=== PATIENT | male | born 1965 | race Caucasian/White ===

== ENCOUNTER 2019-07-20 09:55 | Inpatient (IN) | payer OTHER ==
--- NOTE | 2019-07-20 10:07 | EDPHYS ---
Physician Documentation [facility] Name: Doyle Jara Age: 54 yrs Sex: Male : 1965 Arrival Date: 07/20/2019 Time: 09:59 Bed 8 Private MD: ED Physician Agustín Arreola HPI: 07/20 10:02 This 54 yrs old Male presents to ER via Unassigned with complaints of satish Abdominal Pain. 10:02 The patient presents with abdominal pain. Onset: The symptoms/episode began/occurred 3 satish day(s) ago. The symptoms do not radiate. Associated signs and symptoms: none. Modifying factors: The symptoms are alleviated by remaining still, the symptoms are aggravated by movement, pressure. Severity of pain: At its worst the pain was moderate in the emergency department the pain is unchanged. The patient has not experienced similar symptoms in the past. Historical: - Allergies: 10:10 No Known Allergies; jl7 - Home Meds: 10:10 metformin 1,000 mg oral TG24 1 tab 2 times per day [Active]; fenofibrate oral oral jl7 [Active]; Glimepiride Oral [Active]; lisinopril 20 mg Oral tab [Active]; Invokana oral oral [Active]; - PMHx: 10:10 Diabetes - NIDDM; Does not have HTN; jl7 - PSHx: 10:10 None; jl7 - Immunization history:: Adult Immunizations unknown. - Social history:: Smoking status: Patient/guardian denies using tobacco. - Family history:: not pertinent. - Ebola Screening: : No symptoms or risks identified at this time. ROS: 10:02 Constitutional: Negative for fever, chills, and weight loss, Eyes: Negative for injury, satish pain, redness, and discharge, ENT: Negative for injury, pain, and discharge, Neck: Negative for injury, pain, and swelling, Cardiovascular: Negative for chest pain, palpitations, and edema, Respiratory: Negative for shortness of breath, cough, wheezing, and pleuritic chest pain, Back: Negative for injury and pain, : Negative for injury, bleeding, discharge, and swelling, MS/Extremity: Negative for injury and deformity, Skin: Negative for injury, rash, and discoloration, Neuro: Negative for headache, weakness, numbness, tingling, and seizure, Psych: Negative for depression, anxiety, suicide ideation, homicidal ideation, and hallucinations, Allergy/Immunology: Negative for hives, rash, and allergies, Endocrine: Negative for neck swelling, polydipsia, polyuria, polyphagia, and marked weight changes. 10:02 Abdomen/GI: Positive for abdominal pain, nausea and vomiting, abdominal cramps, abdominal distension, of the right lower quadrant. Exam: 10:02 Constitutional: This is a well developed, well nourished patient who is awake, alert, satish and in no acute distress. Head/Face: Normocephalic, atraumatic. Eyes: Pupils equal round and reactive to light, extra-ocular motions intact. Lids and lashes normal. Conjunctiva and sclera are non-icteric and not injected. Cornea within normal limits. Periorbital areas with no swelling, redness, or edema. ENT: Nares patent. No nasal discharge, no septal abnormalities noted. Tympanic membranes are normal and external auditory canals are clear. Oropharynx with no redness, swelling, or masses, exudates, or evidence of obstruction, uvula midline. Mucous membranes moist. Neck: Trachea midline, no thyromegaly or masses palpated, and no cervical lymphadenopathy. Supple, full range of motion without nuchal rigidity, or vertebral point tenderness. No Meningismus. Chest/axilla: Normal chest wall appearance and motion. Nontender with no deformity. No lesions are appreciated. Cardiovascular: Regular rate and rhythm with a normal S1 and S2. No gallops, murmurs, or rubs. Normal PMI, no JVD. No pulse deficits. Respiratory: Lungs have equal breath sounds bilaterally, clear to auscultation and percussion. No rales, rhonchi or wheezes noted. No increased work of breathing, no retractions or nasal flaring. Back: No spinal tenderness. No costovertebral tenderness. Full range of motion. Male : Normal genitalia with no discharge or lesions. Skin: Warm, dry with normal turgor. Normal color with no rashes, no lesions, and no evidence of cellulitis. MS/ Extremity: Pulses equal, no cyanosis. Neurovascular intact. Full, normal range of motion. Neuro: Awake and alert, GCS 15, oriented to person, place, time, and situation. Cranial nerves II-XII grossly intact. Motor strength 5/5 in all extremities. Sensory grossly intact. Cerebellar exam normal. Normal gait. Psych: Awake, alert, with orientation to person, place and time. Behavior, mood, and affect are within normal limits. 10:02 Abdomen/GI: Inspection: abdomen appears normal, Bowel sounds: hyperactive, Palpation: moderate abdominal tenderness, in the right lower quadrant, Liver: no appreciated palpable abnormalities, Hernia: not appreciated. Vital Signs: 10:10 BP 110 / 67; Pulse 99; Resp 17 S; Temp 98.2(O); Pulse Ox 95% on R/A; Weight 112.49 kg jl7 (R); Height 5 ft. 9 in. (175.26 cm) (R); Pain 2/10; 11:00 BP 105 / 63; Pulse 90; Resp 16 S; Pulse Ox 97% on R/A; Pain 4/10; jl7 10:10 Body Mass Index 36.62 (112.49 kg, 175.26 cm) 7 MDM: 10:00 Patient medically screened. [facility] 10:04 Data reviewed: vital signs, nurses notes, lab test result(s), EKG, radiologic studies, [facility] CT scan, plain films. 07/20 10:01 Order name: Basic Metabolic Panel; Complete Time: 10:58 [facility] 07/20 10:01 Order name: CBC with Diff [facility] 07/20 10:01 Order name: LFT's; Complete Time: 10:58 [facility] 07/20 10:01 Order name: Magnesium; Complete Time: 10:58 [facility] 07/20 10:01 Order name: NT PRO-BNP; Complete Time: 10:58 [facility] 07/20 10:01 Order name: PT-INR; Complete Time: 10:58 [facility] 07/20 10:01 Order name: Troponin (emerg Dept Use Only); Complete Time: 10:58 [facility] 07/20 10:01 Order name: XRAY Chest (1 view) [facility] 07/20 11:27 Order name: Urine Dipstick--Ancillary (enter results) 07/20 10:01 Order name: EKG; Complete Time: 10:02 [facility] 07/20 10:01 Order name: Cardiac monitoring; Complete Time: 10:27 [facility] 07/20 10:01 Order name: EKG - Nurse/Tech; Complete Time: 10:27 [facility] 07/20 10:01 Order name: IV Saline Lock; Complete Time: 10: [facility] 07/20 10: Order name: Labs collected and sent; Complete Time: : [facility] 07/20 10: Order name: O2 Per Protocol; Complete Time: : [facility] 07/20 10: Order name: O2 Sat Monitoring; Complete Time: : [facility] Administered Medications: 10:55 Drug: NS 0.9% 1000 ml Route: IV; Rate: 1 bolus; Site: right forearm; jl7 12:03 Follow up: IV Status: Completed infusion; IV Intake: 1000ml jl7 11:00 Drug: Flagyl 500 mg Volume: 100 ml; Route: IVPB; Rate: 200 ml/hr; Infused Over: 30 jl7 mins; Site: right forearm; 11:30 Follow up: IV Status: Completed infusion jl7 11:03 Drug: Zofran 4 mg Route: IVP; Site: right forearm; jl7 11:56 Follow up: Response: No adverse reaction jl7 11:10 Drug: morphine 2 mg Route: IVP; Site: right forearm; jl7 11:30 Follow up: Response: No adverse reaction; Pain is decreased jl7 11:45 Drug: Zosyn 3.375 grams Route: IVPB; Infused Over: 60 mins; Site: right forearm; jl7 12:04 Follow up: IV Status: Infusion continued upon admission jl7 12:00 Drug: NS 0.9% 1000 ml Route: IV; Rate: 1 bolus; Site: right forearm; jl7 12:04 Follow up: IV Status: Infusion continued upon admission jl7 Disposition: 07/20/19 10:06 Hospitalization ordered by [facility] for Inpatient Admission. Preliminary diagnosis are Abdominal tenderness, Acute appendicitis with localized peritonitis - perforated, Elevated white blood cell count. - Bed requested for Telemetry/MedSurg (Inpatient). - Status is Inpatient Admission. jl7 - Condition is Fair. - Problem is new. - Symptoms have improved. UTI on Admission? No Signatures: Dispatcher [employer] EDAgustín Rashid MD MD cha Leal, Jahala, RN RN jl7 Teodora Yoo Corrections: (The following items were deleted from the chart) 10:47 10:06 Hospitalization Ordered by Choco Boogie MD for Inpatient Admission. Preliminary eb diagnosis is Abdominal tenderness; Acute appendicitis with localized peritonitis - perforated. Bed requested for Telemetry/MedSurg (Inpatient). Status is Inpatient Admission. Condition is Fair. Problem is new. Symptoms have improved. UTI on Admission? No. satish 10:58 10:47 07/20/2019 10:06 Hospitalization Ordered by Choco Boogie MD for Inpatient satish Admission. Preliminary diagnosis is Abdominal tenderness; Acute appendicitis with localized peritonitis - perforated. Bed requested for Telemetry/MedSurg (Inpatient). Status is Inpatient Admission. Condition is Fair. Problem is new. Symptoms have improved. UTI on Admission? No. eb 12:05 10:58 07/20/2019 10:06 Hospitalization Ordered by Choco Boogie MD for Inpatient jl7 Admission. Preliminary diagnosis is Abdominal tenderness; Acute appendicitis with localized peritonitis - perforated; Elevated white blood cell count. Bed requested for Telemetry/MedSurg (Inpatient). Status is Inpatient Admission. Condition is Fair. Problem is new. Symptoms have improved. UTI on Admission? No. satish
[2019-07-20] MEDS ORDERED: ONDANSETRON 4 MG/2 ML VIAL ONE (10:29)
[2019-07-20] MEDS ORDERED: NA CHLORIDE 0.9% 2,000 ML ONE (10:29)
[2019-07-20] MEDS ORDERED: MORPHINE 2 MG/ML SYR ONE (10:29)
[2019-07-20] MEDS ORDERED: PIPER/TAZO/NS 3.375gm 0 GM/0 ML BAG ONE (10:30)
[2019-07-20] MEDS ORDERED: METRONIDAZOLE 500mg IVPB 500 MG/100 ML BAG IV ONE (10:30)
[2019-07-20] MEDS ORDERED: PIPER/TAZO/NS 3.375gm 3.375 GM/100 ML BAG ONE (10:31)
[2019-07-20 10:36] LABS: Protime INR 1.02
[2019-07-20 10:44] LABS: Absolute Lymphocytes (CBC) 2.5 K/uL (0.7-4.9); Basophils % 0.2 % (0-1.3); Hematocrit 42.2 % (39.6-49.0); Lymphocytes % 10.8 % (15.3-44.8); MPV 7.3 fL (7.6-11.3); RBC Red Blood Cell Count 4.81 M/uL (4.33-5.43)
[2019-07-20 10:55] LABS: ALT/SGPT 44 U/L (12-78); AST/SGOT 10 U/L (15-37); Alkaline Phosphatase 93 U/L (45-117); BUN Blood Urea Nitrogen 27 mg/dL (7-18); Bicarbonate 22 mmol/L (21-32); Bilirubin Direct 0.1 mg/dL (0-0.2); Bilirubin Total 0.2 mg/dL (0.2-1.0); Glucose Level 170 mg/dL (74-106); Magnesium 2.2 mg/dL (1.8-2.4); NT PRO-BNP 47 pg/mL (<125); Potassium 4.5 mmol/L (3.5-5.1); Protein, Total 8.2 g/dL (6.4-8.2); Sodium Level 138 mmol/L (136-145); Troponin (Emerg Dept Use Only) < 0.02 ng/mL (0.0-0.045)
[2019-07-20] MEDS ORDERED: PROPOFOL 200 MG/20 ML VIAL IV ONE ×2 (12:01→13:34)
[2019-07-20] MEDS ORDERED: MIDAZOLAM HCL 2 MG/2 ML INJ ONE (12:01)
[2019-07-20] MEDS ORDERED: ROCURONIUM 50 MG/5 ML VIAL IV ONE (12:02)
[2019-07-20] MEDS ORDERED: FENTANYL CITR 100 MCG/2 ML ONE ×2 (12:02→12:41)
[2019-07-20] MEDS ORDERED: LIDOCAINE 2% MPF 5 ML VIAL ONE (12:02)
--- NOTE | 2019-07-20 12:06 | ER ---
Nurse's Notes [facility] Name: Doyle Jara Age: 54 yrs Sex: Male : 1965 Arrival Date: 07/20/2019 Time: 09:59 Bed 8 Private MD: Diagnosis: Abdominal tenderness;Acute appendicitis with localized peritonitis-perforated;Elevated white blood cell count Presentation: 07/20 10:10 Presenting complaint: Patient states: RLQ abd pain x 10 days. Transition of care: jl7 patient was received from another setting of care (hospital), Out-patient CT. Onset of symptoms was July 11, 2019. Risk Assessment: Do you want to hurt yourself or someone else? Patient reports no desire to harm self or others. Initial Sepsis Screen: Does the patient meet any 2 criteria? No. Patient's initial sepsis screen is negative. Does the patient have a suspected source of infection? Yes: Acute abdominal pain. Care prior to arrival: None. 10:10 Method Of Arrival: Wheelchair jl7 10:10 Acuity: RADU 2 jl7 Triage Assessment: 10:10 General: Appears in no apparent distress. uncomfortable, Behavior is calm, cooperative, jl7 appropriate for age. Pain: Complains of pain in right lower quadrant Pain does not radiate. Pain currently is 2 out of 10 on a pain scale. at worst was 10 out of 10 on a pain scale. Quality of pain is described as sharp, stabbing, Pain began 10 days ago Is intermittent. EENT: No signs and/or symptoms were reported regarding the EENT system. Neuro: Level of Consciousness is awake, alert, obeys commands, Oriented to person, place, time, situation. Cardiovascular: Patient's skin is warm and dry. Respiratory: Airway is patent Respiratory effort is even, unlabored, Respiratory pattern is regular, symmetrical. GI: Abdomen is round non-distended, Stools are reported to be normal. Bowel sounds present X 4 quads. Patient currently denies constipation, diarrhea, nausea, vomiting. : No signs and/or symptoms were reported regarding the genitourinary system. Derm: Skin is pink, warm \T\ dry. Musculoskeletal: No signs and/or symptoms reported regarding the musculoskeletal system. Historical: - Allergies: 10:10 No Known Allergies; jl7 - Home Meds: 10:10 metformin 1,000 mg oral TG24 1 tab 2 times per day [Active]; fenofibrate oral oral jl7 [Active]; Glimepiride Oral [Active]; lisinopril 20 mg Oral tab [Active]; Invokana oral oral [Active]; - PMHx: 10:10 Diabetes - NIDDM; Does not have HTN; jl7 - PSHx: 10:10 None; jl7 - Immunization history:: Adult Immunizations unknown. - Social history:: Smoking status: Patient/guardian denies using tobacco. - Family history:: not pertinent. - Ebola Screening: : No symptoms or risks identified at this time. Screenin:41 Abuse screen: Denies threats or abuse. Denies injuries from another. Nutritional jl7 screening: No deficits noted. Tuberculosis screening: No symptoms or risk factors identified. Fall Risk IV access (20 points). Total Curran Fall Scale indicates No Risk (0-24 pts). Vital Signs: 10:10 BP 110 / 67; Pulse 99; Resp 17 S; Temp 98.2(O); Pulse Ox 95% on R/A; Weight 112.49 kg jl7 (R); Height 5 ft. 9 in. (175.26 cm) (R); Pain 2/10; 11:00 BP 105 / 63; Pulse 90; Resp 16 S; Pulse Ox 97% on R/A; Pain 4/10; jl7 10:10 Body Mass Index 36.62 (112.49 kg, 175.26 cm) jl7 ED Course: 09:59 Patient arrived in ED. jl7 09:59 Agustín Arreola MD is Attending Physician. satish 10:03 Agustin Maxwell RN is Primary Nurse. jl7 10:05 Choco Boogie MD is Hospitalizing Provider. satish 10:10 Arm band placed on right wrist. jl7 10:35 Triage completed. jl7 10:41 Patient has correct armband on for positive identification. Placed in gown. Bed in low jl7 position. Call light in reach. Side rails up X 1. Pulse ox on. NIBP on. Warm blanket given. 10:41 Initial lab(s) drawn, by nv, sent to lab. Inserted saline lock: 20 gauge in right jl7 forearm, using aseptic technique. Blood collected. 12:05 No provider procedures requiring assistance completed. Patient admitted, IV remains in jl7 place. intact, No redness/swelling at site. Administered Medications: 10:55 Drug: NS 0.9% 1000 ml Route: IV; Rate: 1 bolus; Site: right forearm; jl7 12:03 Follow up: IV Status: Completed infusion; IV Intake: 1000ml jl7 11:00 Drug: Flagyl 500 mg Volume: 100 ml; Route: IVPB; Rate: 200 ml/hr; Infused Over: 30 jl7 mins; Site: right forearm; 11:30 Follow up: IV Status: Completed infusion jl7 11:03 Drug: Zofran 4 mg Route: IVP; Site: right forearm; jl7 11:56 Follow up: Response: No adverse reaction jl7 11:10 Drug: morphine 2 mg Route: IVP; Site: right forearm; jl7 11:30 Follow up: Response: No adverse reaction; Pain is decreased jl7 11:45 Drug: Zosyn 3.375 grams Route: IVPB; Infused Over: 60 mins; Site: right forearm; jl7 12:04 Follow up: IV Status: Infusion continued upon admission jl7 12:00 Drug: NS 0.9% 1000 ml Route: IV; Rate: 1 bolus; Site: right forearm; jl7 12:04 Follow up: IV Status: Infusion continued upon admission jl7 Intake: 12:03 IV: 1000ml; Total: 1000ml. jl7 Outcome: 10:06 Decision to Hospitalize by Provider. satish 12:05 Admitted to OR accompanied by nurse, via stretcher, with chart. jl7 12:05 Condition: stable 12:05 Discharge instructions given to patient, Instructed on the need for admit, Demonstrated understanding of instructions. 12:05 Patient left the ED. jl7 Signatures: Agustín Arreola MD MD cha Leal, Jahala, RN RN jl7
[2019-07-20] MEDS ORDERED: NA CHLORIDE 0.9% 1,000 ML ONE ×2 (12:12→14:08)
--- NOTE | 2019-07-20 12:22 | P.HP ---
Date of Service: 07/20/19 PC: This 54-year-old male presented to the emergency room with severe right lower quadrant abdominal pain for diagnosis and treatment. HPC: Patient states he has had abdominal discomfort for least last 2 days. Describes of almost into his back. Had pain is not constant but does seem to come and go. PMH: Diabetes PSHx: Denies any prior surgeries SOC: No known allergies SYS REVIEW: No cough, wheeze or shortness of breath. No chest pain or palpitations. Lives by himself. O/E awake alert comfortable at the moment , vital signs are stable HEENT: Not icteric Chest: Chest movement equal bilateral ABD: Tender with mild guarding in the right lower quadrant LOCO: Into DATA: White cell IMPRESSION: CT scan corresponds with clinical diagnosis of acute abdomen. CT scan shows a large fecalith in the right lower quadrant with surrounding flight PLAN: I will take him to the operating room for a laparoscopic possible open appendectomy. The risks of this procedure have been discussed. The possibility of bleeding, infection, injury to bowel and surrounding structures have been outlined. The possible need for an open and/or further surgeries was discussed. He understands and wants us to proceed.
[2019-07-20 12:34] LABS: Urine Blood NEGATIVE (NEG); Urine Glucose 2+ (NEG); Urine Protein NEGATIVE (NEG)
[2019-07-20] MEDS ORDERED: NS 0.9% VIAL 10 ML ONE (12:46)
[2019-07-20] MEDS ORDERED: Phenylephrine HCl 10 MG/ML 1 ML VIAL ONE (12:46)
[2019-07-20] MEDS ORDERED: D5 0.45 NS 1,000 ML IV SCH ×2 (13:29→18:00)
[2019-07-20] MEDS ORDERED: ACETAMINOPHEN 325 MG TABLET PO PRN (13:29)
[2019-07-20] MEDS ORDERED: MORPHINE 4 MG/ML SYR IV PRN (13:29)
[2019-07-20] MEDS ORDERED: GLYCOPYRROLATE 0.2 MG/ML SYR ONE (13:59)
[2019-07-20] MEDS ORDERED: NEOSTIGMINE 1 MG/ML -10 ML VIAL ONE (14:03)
--- NOTE | 2019-07-20 14:09 | P.OP ---
Preoperative diagnosis: Acute abdomen with ruptured appendix Postoperative diagnosis: The same Primary procedure: Laparoscopy drainage of intra-abdominal abscess and removal of fecalith Specimen: 1 fecalith Findings: Abscess right lower quadrant with fecalith Operative Technique: The patient brought the operating room placed supine on the table. After the induction of adequate general endotracheal anesthesia, the area of the abdomen was prepped with a DuraPrep solution, and he was draped in usual aseptic manner. A subumbilical incision was made. This was brought down through the skin and subcutaneous tissue. The Visiport was now used to enter the peritoneal cavity and created pneumoperitoneum to approximately 12 mm of mercury. With the patient placed in Trendelenburg and rolled to the left. A 5 mm trocar was placed in the lower midline, and another in the right upper quadrant. We were noted visualize the peritoneal cavity. We could see an intense inflammatory process in the right lower quadrant. The bowel in this area was adherent to the anterior abdominal wall. In the right lower quadrant just at the brim of the pelvis we could see that there was not intense inflammatory process. Gentle dissection allowed us to enter this large abscess cavity. Thick purulent material was obtained. This was aspirated from the peritoneal cavity. There was also some old partially organized fibrin is blood clot. In the center of this abscess cavity was a large fecalith. It measured approximately 2 cm in size. This was placed into an Endo-Catch and brought out through the umbilical trocar site. The area was once again flushed with urgent large amount of normal saline. Some necrotic tissue and debris was noted in the area. The inflammatory she does response was quite intense in this area. I made the decision to true strain this area with Rigo-Velez drains as further dissection would necessitate us opening this patient and having to possibly do a bowel resection an obviously compromised tissue. There is no evidence of any gas or fluid leaking from the intestine. I feel that this ruptured probably hop on a number of days ago and had sealed. A 10 mm Rigo-Velez drain was placed into the abscess cavity and the Tram right lower quadrant between the bowel and the anterior abdominal wall. This to brought out through the lower midline incision. An OG TEETEE drain was placed down into the true pelvis and brought out through the right upper quadrant trocar site. The area was now irrigated with a copious amount of saline solution. The effluent was aspirated from the peritoneal cavity. The Rigo-Velez drains were now secured in place. We were able to visualize the right lower quadrant as the pneumoperitoneum was collapsed under direct vision with is 10 mm umbilical port. The umbilical trocar site was approximated with interrupted suture of PDS. 2 use ketan were placed at the emboli kiss due to the amount of contamination and expected infection in this area. At the end of procedure he was stable when sent to the recovery room. Needle sponge instrument count were correct. Complications: None Drain(s): TEETEE drain (2 Rigo-Velez drains) Transferred to: Recovery Room Condition: Good
[2019-07-20 14:12] LABS: Platelet Estimate INCR; Toxic Granulation 1+
[2019-07-20 14:13] LABS: Blood Morphology Comment NOT SEEN (NOT SEEN)
[2019-07-20] MEDS: HYDROMORPHONE HCL 1 MG/ML INJ ONE ×6 (14:16→16:00)
[2019-07-20] MEDS: FENTANYL CITR 100 MCG/2 ML ONE ×2 (14:30→14:56)
[2019-07-20] MEDS: INSULIN -REGULAR HUMAN 50 UNIT/0.5 ML ML SQ SCH ×2 (16:30→20:57)
[2019-07-20] MEDS ORDERED: D50W 25 GM/50 ML SYRINGE IV PRN (16:42)
[2019-07-20] MEDS ORDERED: GLUCAGON 1 MG/VIAL IM PRN (16:42)
--- NOTE | 2019-07-20 17:33 | P.CNS ---
Date of Consult: 07/20/19 Reason for Consult: Diabetes management Chief Complaint: Acute abdomen History of Present Illness: Patient is a 54-year-old male with past medical history of diabetes obesity who comes into the hospital with abdominal pain. Patient was taken to the OR emergently by Dr. Cook for laparotomy. Patient had a fecalith and abscess that was drained. Patient did well postoperatively. Hospitalist service was consulted for medical management. Patient states that he has been a diabetic for many years. He frankly mentioned that he does not monitor his blood glucose levels very well and his diabetes is not well controlled. He states his blood sugars are usually in the 200 's he does not follow a diabetic diet. Patient is on metformin and glimepiride. Does not take any insulin. Patient does not routinely go for screening tests required for his diabetes including podiatry ophthalmology exams. Currently his blood sugar levels are 212 in the PACU. Not in DKA. Allergies No Known Allergies Allergy (Unverified 07/20/19 13:29) Home medications list reviewed: Yes - Past Medical/Surgical History Diabetic: Yes -: Diabetes mellitus type 2 -: Laparotomy with abscess drainage and removal of fecalith - Family History Father Family History: Reviewed- Non-Contributory (Patient denies any history of premature coronary artery disease in the family) - Social History Smoking Status: Never smoker Alcohol use: No Place of Residence: Home Review of Systems 10-point ROS is otherwise unremarkable Gastrointestinal: As per HPI Physical Examination Temp Pulse Resp BP Pulse Ox 96.8 F 83 15 100/46 L 07/20/19 16:08 07/20/19 16:08 07/20/19 16:08 07/20/19 16:08 General: Alert, Oriented x3, Mild distress (Due to pain from surgery), Obese, Other HEENT: Atraumatic, PERRLA, Mucous membr. moist/pink, EOMI, Sclerae nonicteric Neck: Supple, JVD not distended Respiratory: Clear to auscultation bilaterally, Normal air movement Cardiovascular: No edema, Normal pulses, Regular rate/rhythm, Normal S1 S2 Gastrointestinal: Hypoactive, No rebound, No guarding, Other (TEETEE drains in place incision site clean dry and intact), Distended, Tenderness (At incision site) Musculoskeletal: No tenderness Integumentary: No rashes, No erythema Neurological: Normal speech, Normal strength at 5/5 x4 extr, Normal tone, Cranial nerves 3-12 intact, Normal affect Laboratory Last Values WBC 23.2 K/uL (4.3-10.9) H* 07/20/19 10:15 RBC 4.81 M/uL (4.33-5.43) 07/20/19 10:15 Hgb 13.9 g/dL (13.6-17.9) 07/20/19 10:15 Hct 42.2 % (39.6-49.0) 07/20/19 10:15 MCV 87.8 fL (80-100) 07/20/19 10:15 MCH 29.0 pg (27.0-35.0) 07/20/19 10:15 MCHC 33.0 g/dL (32.0-36.0) 07/20/19 10:15 RDW 13.9 % (12.1-15.2) 07/20/19 10:15 Plt Count 490 K/uL (152-406) H 07/20/19 10:15 MPV 7.3 fL (7.6-11.3) L 07/20/19 10:15 Neutrophils % 81.5 % (41.7-73.7) H 07/20/19 10:15 Lymphocytes % 10.8 % (15.3-44.8) L 07/20/19 10:15 Monocytes % 6.3 % (3.3-12.3) 07/20/19 10:15 Eosinophils % 1.2 % (0-4.4) 07/20/19 10:15 Basophils % 0.2 % (0-1.3) 07/20/19 10:15 Absolute Neutrophils 18.9 K/uL (1.8-8.0) H 07/20/19 10:15 Segmented Neutrophils 75 % (40-80) 07/20/19 10:15 Band Neutrophils 3 % (0-1) H 07/20/19 10:15 Absolute Lymphocytes 2.5 K/uL (0.7-4.9) 07/20/19 10:15 Lymphocytes 9 % (15-42) L 07/20/19 10:15 Monocytes 6 % (0-10) 07/20/19 10:15 Absolute Monocytes 1.5 K/uL (0.1-1.3) H 07/20/19 10:15 Eosinophils 4 % (0-3) H 07/20/19 10:15 Absolute Eosinophils 0.3 K/uL (0-0.5) 07/20/19 10:15 Absolute Basophils 0.0 K/uL (0-0.5) 07/20/19 10:15 Atypical Lymphocytes 3 07/20/19 10:15 Toxic Granulation 1+ 07/20/19 10:15 Morphology Comment Not seen (NOT SEEN) 07/20/19 10:15 PT 12.0 SECONDS (9.5-12.5) 07/20/19 10:15 INR 1.02 07/20/19 10:15 Sodium 138 mmol/L (136-145) 07/20/19 10:15 Potassium 4.5 mmol/L (3.5-5.1) 07/20/19 10:15 Chloride 108 mmol/L (98-107) H 07/20/19 10:15 Carbon Dioxide 22 mmol/L (21-32) 07/20/19 10:15 BUN 27 mg/dL (7-18) H 07/20/19 10:15 Creatinine 0.72 mg/dL (0.55-1.3) 07/20/19 10:15 Estimated GFR > 90 mL/min (=/>90) 07/20/19 10:15 Glucose 170 mg/dL (74-106) H 07/20/19 10:15 Calcium 9.7 mg/dL (8.5-10.1) 07/20/19 10:15 Magnesium 2.2 mg/dL (1.8-2.4) 07/20/19 10:15 Total Bilirubin 0.2 mg/dL (0.2-1.0) 07/20/19 10:15 Direct Bilirubin 0.1 mg/dL (0-0.2) 07/20/19 10:15 AST 10 U/L (15-37) L 07/20/19 10:15 ALT 44 U/L (12-78) 07/20/19 10:15 Alkaline Phosphatase 93 U/L (45-117) 07/20/19 10:15 Rapid Troponin I < 0.02 ng/mL (0.0-0.045) 07/20/19 10:15 NT-Pro-B Natriuret Pep 47 pg/mL (<125) 07/20/19 10:15 Serum Total Protein 8.2 g/dL (6.4-8.2) 07/20/19 10:15 Albumin 3.0 g/dL (3.4-5.0) L 07/20/19 10:15 Globulin 5.2 g/dL (2.3-3.5) H 07/20/19 10:15 Albumin/Globulin Ratio 0.6 (1.1-1.8) L 07/20/19 10:15 Urine pH 5.0 (5.0-7.0) 07/20/19 11:27 Ur Specific [place] 1.010 (1.005-1.030) 07/20/19 11:27 Urine Ketones Negative (NEG) 07/20/19 11:27 Urine Blood Negative (NEG) 07/20/19 11:27 Urine Nitrite Negative (NEG) 07/20/19 11:27 Ur Leukocyte Esterase Negative (NEG) 07/20/19 11:27 Urine Glucose 2+ (NEG) 07/20/19 11:27 Urine Total Protein Negative (NEG) 07/20/19 11:27 Conclusions/Impression: 54-year-old male with 1. Acute abdomen secondary to Right lower quadrant abdomen abscess status post incision and drainage and fecalith removal. 2. Diabetes mellitus type 2 [id number] with hyperglycemia. Will start on sliding scale insulin and monitor blood glucose levels will check hemoglobin A1c. Recommended outpatient retinal examination and podiatry exam. 3. Obesity. BMI 36. Counseled 4. Thrombocytosis. Will repeat level in a.m. Thank you for allowing us to participate in the care of your patient. Will follow along with you
[2019-07-20] MEDS: METRONIDAZOLE 500mg IVPB 500 MG/100 ML BAG IV SCH ×2 (18:42→23:28)
[2019-07-20] MEDS: PIPER/TAZO/NS 3.375gm 3.375 GM/100 ML BAG IVPB SCH (18:43)
[2019-07-20] MEDS: MORPHINE 4 MG/ML SYR IV PRN ×2 (20:00→23:24)
[2019-07-20 20:17] VITALS: BMI 36.4
[2019-07-20] MEDS: FAMOTIDINE 20 MG/2 ML VIAL IV SCH (20:55)
[2019-07-21] MEDS: PIPER/TAZO/NS 3.375gm 3.375 GM/100 ML BAG IVPB SCH ×4 (01:06→23:56)
--- NOTE | 2019-07-21 04:41 | EKG ---
Test Date: 2019-07-20 Test Time: 10:17:14 [employer]: MICHELLE MEASUREMENT RESULTS: Intervals: Rate: 97 IL: 158 QRSD: 90 QT: 366 QTc: 464 [place]: P: 42 IL: 158 QRS: 0 T: 22 INTERPRETIVE STATEMENTS: Normal sinus rhythm Minimal voltage criteria for LVH, may be normal variant Nonspecific ST and T wave abnormality Abnormal ECG No previous ECG available for comparison Electronically Signed On 07-21-19 04:40:56 CDT by Aditya Espinosa
[2019-07-21] MEDS: MORPHINE 4 MG/ML SYR IV PRN ×4 (05:01→23:57)
[2019-07-21] MEDS: METRONIDAZOLE 500mg IVPB 500 MG/100 ML BAG IV SCH ×4 (05:02→23:56)
[2019-07-21] MEDS: ONDANSETRON 4 MG/2 ML VIAL IV PRN (05:12)
[2019-07-21 05:45] LABS: Absolute Lymphocytes (CBC) 1.9 K/uL (0.7-4.9); Basophils % 0.2 % (0-1.3); Hematocrit 36.1 % (39.6-49.0); Lymphocytes % 9.8 % (15.3-44.8); MPV 7.2 fL (7.6-11.3); RBC Red Blood Cell Count 4.14 M/uL (4.33-5.43)
[2019-07-21 06:11] LABS: BUN Blood Urea Nitrogen 19 mg/dL (7-18); Bicarbonate 23 mmol/L (21-32); Glucose Level 137 mg/dL (74-106); Potassium 4.1 mmol/L (3.5-5.1); Sodium Level 138 mmol/L (136-145)
[2019-07-21] MEDS: INSULIN -REGULAR HUMAN 50 UNIT/0.5 ML ML SQ SCH ×4 (07:30→20:18)
[2019-07-21] MEDS: FAMOTIDINE 20 MG/2 ML VIAL IV SCH ×2 (08:08→20:19)
[2019-07-21] MEDS: HYDROCODONE/APAP 7.5/325 MG TAB PO PRN ×3 (08:08→20:17)
[2019-07-21] MEDS: NA CHLORIDE 0.9% 1,000 ML IV SCH ×3 (11:05→20:19)
--- NOTE | 2019-07-21 12:49 | P.PN ---
Date of Service: 07/21/19 S: Patient states that he feels a whole lot better than yesterday. Still having some soreness, but appears to be controlled with pain medicine. O: Incisions are clean, expected drainage by a TEETEE drains A: Surgically stable P: I have discussed at length our surgical findings and procedure that we perform yesterday. In retrospect he thinks that his appendix probably ruptured about 2 weeks ago. He is feeling much better today. He is going to try to move around a lobe of more, he understands the pain medicine, and we will reassess him in the a.m..
--- NOTE | 2019-07-21 14:44 | P.PN ---
Subjective Date of Service: 07/21/19 Chief Complaint: Acute abdomen Subjective: Tolerating diet, Improving Patient seen and examined chart reviewed and case discussed with RN. Patient states he is feeling better. Has not passed any gas. Encouraged to ambulate. Review of Systems 10-point ROS is otherwise unremarkable Gastrointestinal: As per HPI Physical Examination - Vital Signs Temperature: 98.6 F Blood Pressure: 118/64 Pulse: 91 Respirations: 18 Pulse Ox (%): 96 - Physical Exam General: Alert, In no apparent distress, Oriented x3, Obese, Other (Slightly ill -appearing) HEENT: Atraumatic, PERRLA, EOMI Neck: Supple, JVD not distended Respiratory: Clear to auscultation bilaterally, Normal air movement Cardiovascular: No edema, Normal pulses, Regular rate/rhythm, Normal S1 S2 Gastrointestinal: Hypoactive, No rebound, No guarding, Other (Incision site clean dry intact TEETEE drains in place), Distended, Tenderness (The incision site and) Musculoskeletal: No erythema, No tenderness Integumentary: No rashes Neurological: Normal speech, Normal strength at 5/5 x4 extr, Normal tone, Normal affect - Studies Laboratory Last Values WBC 19.4 K/uL (4.3-10.9) H D 07/21/19 05:24 RBC 4.14 M/uL (4.33-5.43) L 07/21/19 05:24 Hgb 12.5 g/dL (13.6-17.9) L 07/21/19 05:24 Hct 36.1 % (39.6-49.0) L 07/21/19 05:24 MCV 87.1 fL (80-100) 07/21/19 05:24 MCH 30.1 pg (27.0-35.0) 07/21/19 05:24 MCHC 34.6 g/dL (32.0-36.0) 07/21/19 05:24 RDW 14.4 % (12.1-15.2) 07/21/19 05:24 Plt Count 421 K/uL (152-406) H 07/21/19 05:24 MPV 7.2 fL (7.6-11.3) L 07/21/19 05:24 Neutrophils % 85.3 % (41.7-73.7) H 07/21/19 05:24 Lymphocytes % 9.8 % (15.3-44.8) L 07/21/19 05:24 Monocytes % 4.6 % (3.3-12.3) 07/21/19 05:24 Eosinophils % 0.1 % (0-4.4) 07/21/19 05:24 Basophils % 0.2 % (0-1.3) 07/21/19 05:24 Absolute Neutrophils 16.6 K/uL (1.8-8.0) H 07/21/19 05:24 Segmented Neutrophils 75 % (40-80) 07/20/19 10:15 Band Neutrophils 3 % (0-1) H 07/20/19 10:15 Absolute Lymphocytes 1.9 K/uL (0.7-4.9) 07/21/19 05:24 Lymphocytes 9 % (15-42) L 07/20/19 10:15 Monocytes 6 % (0-10) 07/20/19 10:15 Absolute Monocytes 0.9 K/uL (0.1-1.3) 07/21/19 05:24 Eosinophils 4 % (0-3) H 07/20/19 10:15 Absolute Eosinophils 0.0 K/uL (0-0.5) 07/21/19 05:24 Absolute Basophils 0.0 K/uL (0-0.5) 07/21/19 05:24 Atypical Lymphocytes 3 07/20/19 10:15 Toxic Granulation 1+ 07/20/19 10:15 Morphology Comment Not seen (NOT SEEN) 07/20/19 10:15 PT 12.0 SECONDS (9.5-12.5) 07/20/19 10:15 INR 1.02 07/20/19 10:15 Sodium 138 mmol/L (136-145) 07/21/19 05:24 Potassium 4.1 mmol/L (3.5-5.1) 07/21/19 05:24 Chloride 107 mmol/L (98-107) 07/21/19 05:24 Carbon Dioxide 23 mmol/L (21-32) 07/21/19 05:24 BUN 19 mg/dL (7-18) H 07/21/19 05:24 Creatinine 0.70 mg/dL (0.55-1.3) 07/21/19 05:24 Estimated GFR > 90 mL/min (=/>90) 07/21/19 05:24 Glucose 137 mg/dL (74-106) H 07/21/19 05:24 Hemoglobin A1c 7.9 % (4.2-6.3) H 07/21/19 05:24 Calcium 8.7 mg/dL (8.5-10.1) D 07/21/19 05:24 Magnesium 2.2 mg/dL (1.8-2.4) 07/20/19 10:15 Total Bilirubin 0.2 mg/dL (0.2-1.0) 07/20/19 10:15 Direct Bilirubin 0.1 mg/dL (0-0.2) 07/20/19 10:15 AST 10 U/L (15-37) L 07/20/19 10:15 ALT 44 U/L (12-78) 07/20/19 10:15 Alkaline Phosphatase 93 U/L (45-117) 07/20/19 10:15 Rapid Troponin I < 0.02 ng/mL (0.0-0.045) 07/20/19 10:15 NT-Pro-B Natriuret Pep 47 pg/mL (<125) 07/20/19 10:15 Serum Total Protein 8.2 g/dL (6.4-8.2) 07/20/19 10:15 Albumin 3.0 g/dL (3.4-5.0) L 07/20/19 10:15 Globulin 5.2 g/dL (2.3-3.5) H 07/20/19 10:15 Albumin/Globulin Ratio 0.6 (1.1-1.8) L 07/20/19 10:15 Urine pH 5.0 (5.0-7.0) 07/20/19 11:27 Ur Specific [place] 1.010 (1.005-1.030) 07/20/19 11:27 Urine Ketones Negative (NEG) 07/20/19 11:27 Urine Blood Negative (NEG) 07/20/19 11:27 Urine Nitrite Negative (NEG) 07/20/19 11:27 Ur Leukocyte Esterase Negative (NEG) 07/20/19 11:27 Urine Glucose 2+ (NEG) 07/20/19 11:27 Urine Total Protein Negative (NEG) 07/20/19 11:27 Medications List Reviewed: Yes Assessment And Plan - Plan 54-year-old male with 1. Acute abdomen secondary to Right lower quadrant abdomen abscess ruptured appendix status post incision and drainage and fecalith removal. Patient is doing well. Has not passed gas encouraged to ambulate. Tolerating clear liquids. 2. Diabetes mellitus type 2 [id number] with hyperglycemia. Continue sliding scale insulin and monitor blood glucose levels. Not well controlled hemoglobin A1c is 7.9%. Recommended outpatient retinal examination and podiatry exam. 3. Obesity. BMI 36. Counseled 4. Thrombocytosis. Improving trending down factor related to acute phase reactant. Will continue to follow along with you
[2019-07-22] MEDS: ONDANSETRON 4 MG/2 ML VIAL IV PRN ×3 (00:01→21:08)
[2019-07-22] MEDS: HYDROCODONE/APAP 7.5/325 MG TAB PO PRN ×4 (02:13→22:28)
[2019-07-22] MEDS: MORPHINE 4 MG/ML SYR IV PRN ×2 (06:48→21:08)
[2019-07-22] MEDS: METRONIDAZOLE 500mg IVPB 500 MG/100 ML BAG IV SCH ×3 (06:48→17:16)
[2019-07-22] MEDS: INSULIN -REGULAR HUMAN 50 UNIT/0.5 ML ML SQ SCH ×4 (07:30→21:00)
[2019-07-22] MEDS ORDERED: DOCUSATE NA 100 MG CAP PO PRN (09:56)
[2019-07-22] MEDS ORDERED: POLYETHYL GLY 3350 17 GM/DOSE PO ONE (09:56)
[2019-07-22] MEDS: FAMOTIDINE 20 MG/2 ML VIAL IV SCH ×2 (09:57→21:00)
[2019-07-22] MEDS: LISINOPRIL 20 MG TAB PO SCH (09:57)
[2019-07-22] MEDS: FENOFIBRATE 160 MG TAB PO SCH (09:57)
[2019-07-22] MEDS: PIPER/TAZO/NS 3.375gm 3.375 GM/100 ML BAG IVPB SCH ×2 (09:59→16:22)
[2019-07-22] MEDS: NA CHLORIDE 0.9% 1,000 ML IV SCH (12:53)
--- NOTE | 2019-07-22 13:48 | P.PN ---
Date of Service: 07/22/19 S: Patient is O specific complaints. Inquiring as to when he is going to be able to be discharged. He lives at home by himself, may require home health. O: Vital signs are stable, clinically patient looks much improved and rested today. Incisions are clean, appropriate drainage from TEETEE strains. Patient making good urine. White cell count elevated but trending in the correct direction. A: This patient is surgically stable at the moment. No increased or suspicious drainage coming from the TEETEE drain at this time. Abdomen remains soft , has bowel sounds P: Continue with the IV antibiotics. Will reassess his lab work tomorrow. Will work on discharge to home with oral antibiotics over the next few days.
--- NOTE | 2019-07-22 15:10 | P.PN ---
Subjective Date of Service: 07/22/19 Chief Complaint: Acute abdomen Patient seen and examined chart reviewed and case discussed with RN. Patient is passing gas. Pt is able to ambulate. Pain is better, and tolerating diet. No BM Review of Systems 10-point ROS is otherwise unremarkable Genitourinary: As per HPI Physical Examination - Vital Signs Temperature: 97.1 F Blood Pressure: 107/58 Pulse: 94 Respirations: 18 Pulse Ox (%): 94 - Physical Exam General: Alert, In no apparent distress, Oriented x3, Obese HEENT: Atraumatic, PERRLA, EOMI Neck: Supple, JVD not distended Respiratory: Clear to auscultation bilaterally, Normal air movement Cardiovascular: No edema, Normal pulses, Regular rate/rhythm, Normal S1 S2 Gastrointestinal: Normal bowel sounds, Soft and benign, Non-distended, Other ( incision site c/d/i. TEETEE drains in place) Musculoskeletal: No tenderness Integumentary: No rashes Neurological: Normal speech, Normal tone, Normal affect - Studies labs reviewed Medications List Reviewed: Yes Assessment And Plan - Plan 54-year-old male with 1. Acute abdomen secondary to Right lower quadrant abdomen abscess ruptured appendix status post incision and drainage and fecalith removal. Patient is doing well. Tolerating diet, passed flatus. Pain better controlled. Able to ambulate. WBC improving. Cont IV Abx. 2. Diabetes mellitus type 2 [id number] with hyperglycemia. Continue sliding scale insulin and monitor blood glucose levels. Not well controlled hemoglobin A1c is 7.9%. No signs of DKA. Recommended outpatient retinal examination and podiatry exam. 3. Obesity. BMI 36. Counseled 4. Thrombocytosis. Improving trending down. 5. HTN, resume home meds. Stable. Will continue to follow along with you
[2019-07-22] MEDS ORDERED: NA CHLORIDE 0.9% 1,000 ML IV SCH (16:00)
[2019-07-23] MEDS: METRONIDAZOLE 500mg IVPB 500 MG/100 ML BAG IV SCH ×4 (01:01→17:54)
[2019-07-23] MEDS: MORPHINE 4 MG/ML SYR IV PRN (01:08)
[2019-07-23] MEDS: PIPER/TAZO/NS 3.375gm 3.375 GM/100 ML BAG IVPB SCH ×3 (02:36→17:53)
[2019-07-23] MEDS: HYDROCODONE/APAP 7.5/325 MG TAB PO PRN ×3 (04:52→19:47)
[2019-07-23 06:03] LABS: Absolute Lymphocytes (CBC) 2.2 K/uL (0.7-4.9); Basophils % 0.4 % (0-1.3); Hematocrit 36.4 % (39.6-49.0); Lymphocytes % 12.3 % (15.3-44.8); RBC Red Blood Cell Count 4.15 M/uL (4.33-5.43)
[2019-07-23 06:16] LABS: BUN Blood Urea Nitrogen 12 mg/dL (7-18); Bicarbonate 26 mmol/L (21-32); Glucose Level 154 mg/dL (74-106); Potassium 4.2 mmol/L (3.5-5.1); Sodium Level 140 mmol/L (136-145)
[2019-07-23] MEDS: INSULIN -REGULAR HUMAN 50 UNIT/0.5 ML ML SQ SCH ×4 (07:30→22:23)
[2019-07-23] MEDS: FAMOTIDINE 20 MG/2 ML VIAL IV SCH ×2 (09:05→19:54)
[2019-07-23] MEDS: FENOFIBRATE 160 MG TAB PO SCH (09:05)
[2019-07-23] MEDS: LISINOPRIL 20 MG TAB PO SCH (09:05)
--- NOTE | 2019-07-23 14:01 | P.PN ---
Date of Service: 07/23/19 S: Today the patient is sitting on a chair. Says he is requiring no IV medication ran just occasional pain pill. Remain still febrile. O coal abdomen is soft, nontender, minimal output through TEETEE but still thick purulent material. A: Continues to improve fat white cell count still elevated P: Continue current therapy.
--- NOTE | 2019-07-23 14:35 | P.PN ---
Subjective Date of Service: 07/23/19 Chief Complaint: Acute abdomen Subjective: Improving Patient seen and examined chart reviewed and case discussed with RN. Patient had multiple BMs. Encouraged to ambulate. Pain is better, and tolerating diet. Review of Systems 10-point ROS is otherwise unremarkable Physical Examination - Vital Signs Temperature: 98.4 F Blood Pressure: 123/75 Pulse: 87 Respirations: 18 Pulse Ox (%): 94 - Physical Exam General: Alert, In no apparent distress, Oriented x3, Obese HEENT: Atraumatic, PERRLA, EOMI Neck: Supple, JVD not distended Respiratory: Clear to auscultation bilaterally, Normal air movement Cardiovascular: No edema, Normal pulses, Regular rate/rhythm, Normal S1 S2 Gastrointestinal: Normal bowel sounds, Soft and benign, Non-distended, Other ( incision site c/d/i. TEETEE drain w purulent discharge) Musculoskeletal: No tenderness Integumentary: No rashes Neurological: Normal speech, Normal strength at 5/5 x4 extr, Normal tone, Normal affect - Studies WBC 17 Medications List Reviewed: Yes Assessment And Plan - Plan 54-year-old male with 1. Acute abdomen secondary to Right lower quadrant abdomen abscess ruptured appendix status post incision and drainage and fecalith removal. Patient is doing well. Tolerating diet, passed flatus, having BM. Pain better controlled. Able to ambulate. WBC improving. Cont IV Abx. 2. Diabetes mellitus type 2 [id number] with hyperglycemia. Continue sliding scale insulin and monitor blood glucose levels. BBG <200 consistently. Not well controlled hemoglobin A1c is 7.9%. Recommended outpatient retinal examination and podiatry exam. 3. Obesity. BMI 36. Counseled 4. Thrombocytosis. unclear etiology. Likely acute phase reactant. Monitor. Consider blood smear. 5. HTN, resumed home meds. Stable. Will continue to follow along with you
[2019-07-24] MEDS ORDERED: NA CHLORIDE 0.9% 500 ML ONE (00:18)
[2019-07-24] MEDS: METRONIDAZOLE 500mg IVPB 500 MG/100 ML BAG IV SCH ×4 (00:36→16:15)
[2019-07-24] MEDS: PIPER/TAZO/NS 3.375gm 3.375 GM/100 ML BAG IVPB SCH ×3 (01:32→16:15)
[2019-07-24] MEDS: HYDROCODONE/APAP 7.5/325 MG TAB PO PRN ×4 (01:33→20:27)
[2019-07-24] MEDS: MORPHINE 4 MG/ML SYR IV PRN (06:01)
[2019-07-24 06:06] LABS: Absolute Lymphocytes (CBC) 2.9 K/uL (0.7-4.9); Basophils % 0.4 % (0-1.3); Hematocrit 38.8 % (39.6-49.0); Lymphocytes % 19.3 % (15.3-44.8); MPV 7.1 fL (7.6-11.3); RBC Red Blood Cell Count 4.38 M/uL (4.33-5.43)
[2019-07-24] MEDS: INSULIN -REGULAR HUMAN 50 UNIT/0.5 ML ML SQ SCH ×4 (07:30→20:27)
[2019-07-24] MEDS: FAMOTIDINE 20 MG/2 ML VIAL IV SCH ×2 (08:24→20:27)
[2019-07-24] MEDS: LISINOPRIL 20 MG TAB PO SCH (08:25)
[2019-07-24] MEDS: FENOFIBRATE 160 MG TAB PO SCH (08:27)
--- NOTE | 2019-07-24 21:21 | P.PN ---
Date of Service: 07/24/19 S: Patient is relaxing and the bed this evening. He has some potato chips. States he feels much better. Pain is controlled however oral medication just not lasting long enough. O: Vital signs are stable, minimal out through TEETEE drain. Abdomen is soft incisions are clean. White cell count is still elevated but trending downward. A: Making progress P: Patient still has elevated white count and some purulent drainage from the TEETEE drain. Will reassess in the a.m.. Hoping to discharge on on oral antibiotics. I have discussed with him the potential procedures required in the future. Namely CT scan, possible colonoscopy, and/or exploratory lap with appendectomy. He understands that there will be more follow-up required and we will determine these other entities at that time.
[2019-07-25] MEDS: HYDROCODONE/APAP 7.5/325 MG TAB PO PRN ×6 (00:26→21:42)
[2019-07-25] MEDS: PIPER/TAZO/NS 3.375gm 3.375 GM/100 ML BAG IVPB SCH ×3 (01:05→15:55)
[2019-07-25] MEDS: INSULIN -REGULAR HUMAN 50 UNIT/0.5 ML ML SQ SCH ×4 (07:30→20:48)
[2019-07-25] MEDS: LISINOPRIL 20 MG TAB PO SCH (08:50)
[2019-07-25] MEDS: FAMOTIDINE 20 MG/2 ML VIAL IV SCH ×2 (08:50→20:49)
[2019-07-25] MEDS: FENOFIBRATE 160 MG TAB PO SCH (08:50)
[2019-07-25] MEDS: MORPHINE 4 MG/ML SYR IV PRN (15:51)
--- NOTE | 2019-07-25 16:04 | P.PN ---
Date of Service: 07/25/19 S: No specific complaints, requiring less oral medication. O: Vital signs are stable, middle mobile out through TEETEE drain Surgically stable PE: Will start to discontinue drains. Anticipate discharge perhaps tomorrow on oral antibiotics and pain medication.
[2019-07-26] MEDS: PIPER/TAZO/NS 3.375gm 3.375 GM/100 ML BAG IVPB SCH ×2 (01:31→09:01)
[2019-07-26] MEDS: HYDROCODONE/APAP 7.5/325 MG TAB PO PRN ×2 (01:37→05:49)
[2019-07-26] MEDS: INSULIN -REGULAR HUMAN 50 UNIT/0.5 ML ML SQ SCH ×2 (07:30→11:30)
[2019-07-26] MEDS: FENOFIBRATE 160 MG TAB PO SCH (09:00)
[2019-07-26] MEDS: FAMOTIDINE 20 MG/2 ML VIAL IV SCH (09:00)
[2019-07-26] MEDS: LISINOPRIL 20 MG TAB PO SCH (09:00)
[2019-07-26 10:18] VITALS: O2SAT 97
[2019-07-26 12:18] VITALS: BP 122/77; TEMP 98.1
[2019-07-26] MEDS: MORPHINE 4 MG/ML SYR IV PRN (13:02)
== END 2019-07-26 16:00 | disposition home or self-care (01) | DRG 340 ==
LOC: ER 09:55 → ERHOLD 10:10 → 4TH 15:51
PROVIDERS: ADMIT Surgery; ATTEND Surgery
PROC: 0WCG4ZZ Extirpation of Matter from Peritoneal Cavity, Percutaneous Endoscopic Approach (ICD-10-PCS; 2019-07-20)
PROC: 0W9G4ZZ Drainage of Peritoneal Cavity, Percutaneous Endoscopic Approach (ICD-10-PCS; 2019-07-20)
PROC: 0DTJ4ZZ Resection of Appendix, Percutaneous Endoscopic Approach (ICD-10-PCS; principal; 2019-07-20 13:00)
DX: K35.33 Acute appendicitis with perforation, localized peritonitis, and gangrene, with abscess (principal); K56.41 Fecal impaction; E11.65 Type 2 diabetes mellitus with hyperglycemia; E66.9 Obesity, unspecified; D47.3 Essential (hemorrhagic) thrombocythemia; I10 Essential (primary) hypertension; Z68.36 Body mass index [BMI] 36.0-36.9, adult
CPT/HCPCS: 36415; 71046; 74176; 76377; 80048; 80076; 81003; 82962; 83036; 83735; 83880; 84484; 85025; 85610; 88302; 88304; 93005; 96365; 96367; 96375; 99285; J1170; J2250; J2270; J2370; J2405; J2543; J2704; J2710; J3010; J7030; J7040; J7799